=== PATIENT | male | born 1970 | race African-American/Black ===

== ENCOUNTER 2016-08-26 19:34 | Emergency (ER) | payer OTHER ==
[~2016-08-26 19:34] MED LIST: IBUPROFEN800 MG PO; PREDNISONE PO; TRIAMCINOLONE AC1 GM EXT
== END 2016-08-26 21:41 | disposition left against medical advice (07) ==
LOC: CED 19:34
DX: Z53.21 Procedure and treatment not carried out due to patient leaving prior to being seen by health care provider (principal)

== ENCOUNTER 2016-11-13 15:34 | Emergency (ER) | payer OTHER ==
[~2016-11-13] VITALS: Ht 179.1 cm; Wt 81.2 kg
--- NOTE | ~2016-11-13 | CR72 ---
[facility] A Service of [facility] RADIOLOGY TEXT RESULTS PATIENT: COSMO MONIQUE LOCATION: [facility] : 68 UNIT #: [id number] AGE: [address]: Helder Liu MD SEX: M ORDER DR: [id number] [facility] [address] [place], [place] [address] [id number] E MR#: [id number] Acc #: [id number] NAME: COSMO MONIUQE : 1970 SEX: M STUDY DATE/TIME: 11/13/2016 16:51 UNIT: [facility] ROOM: STUDY DESCRIPTION: CR Chest Single View Portable Attending Physician: Helder Liu M.D. Referring Physician: Leisa Rodas A.P.R.N. Ordering Physician: Helder Liu M.D. Primary Care Physician: Leisa Rodas A.P.R.N. MEDICAL IMAGING REPORT This report is preliminary unless electronic signature is present EXAM Portable chest 11/14/2015. HISTORY Bilateral lower extremity pain, numbness and edema with shortness of breath on exertion. Symptoms for 1 month. Benign essential hypertension. FINDINGS The heart is normal in size. The lungs are hyperinflated with emphysematous and fibrotic changes characteristic of COPD with bullous changes in the right upper lobe. No airspace consolidation is seen. There are no pleural effusions. IMPRESSION COPD with bullous changes in the right upper lobe. No active pulmonary disease. Dictated by... Candido Gao M.D. THIS IS AN ELECTRONICALLY VERIFIED REPORT Candido Gao M.D. at 11/14/2016 2:21 PM KRT/gz TD: 11/14/2016 08:04 JOB #: [id number] MEDICAL IMAGING REPORT Page 1 of 1 COPY
--- NOTE | ~2016-11-13 | EKG ---
PATIENT: COSMO MONIQUE UNIT #: [id number] Ventricular Rate: 88 BPM Atrial Rate: 88 BPM P-R Interval: 126 ms QRS Duration: 76 ms Q-T Interval: 366 ms QTC Calculation(Bezet): 442 ms P [place]: 38 degrees Calculated R [place]: 43 degrees Calculated T [place]: 23 degrees Diagnosis Line: Normal sinus rhythm Diagnosis Line: Normal ECG Diagnosis Line: When compared with ECG of 19-JUN-2010 01:47, Diagnosis Line: No significant change was found Diagnosis Line: Confirmed by BENSON GONSALEZ MD ([id number]) on 11/14/2016 Diagnosis Line: 7:17:03 AM INTERPRETING MD: SUNSHINE MONTEJO
[2016-11-13 16:42] LABS: BASOPHIL# 0.1 X10e3 (0-0.3); BASOPHIL% 1.2 % (0-2.5); EOSINOPHIL# 0.2 X10e3 (0-0.7); EOSINOPHIL% 2.5 % (0.0-7.0); HEMATOCRIT 38.2 % (38.0-50.0); LYMPHOCYTE# 1.6 X10e3 (1.0-3.5); LYMPHOCYTE% 24.6 % (17.0-45.0); MEAN CELL VOLUME 85.5 FL (83-96); MEAN CORPUSCULAR HEMOGLOBIN 29.1 PG (28-34); MEAN PLATELET VOLUME 7.4 FL (6.5-11.5); MONOCYTE# 0.5 X10e3 (0-1.0); MONOCYTE% 7.7 % (3.0-12.0); NEUTROPHIL# 4.3 X10e3 (1.5-7.1); PLATELET COUNT 234 X10e3 (140-420); RED BLOOD COUNT 4.47 X10e (3.90-5.60); RED CELL DISTRIBUTION WIDTH 13.3 % (11.0-15.5); WHITE BLOOD COUNT 6.7 X10e3 (4.0-10.5)
[2016-11-13 16:44] LABS: DIFF IND NO
[2016-11-13 17:05] LABS: ALBUMIN SERUM 3.8 g/dL (3.5-5.0); BILIRUBIN, DIRECT 0.1 mg/dL (0.0-0.2); BILIRUBIN,INDIRECT 0.6 mg/dL (0.0-0.9); BILIRUBIN,TOTAL 0.7 mg/dL (0.2-2.0); CALCIUM SERUM 9.1 mg/dL (8.4-10.2); GLOM FILT RATE Estimated 103.4 mL/min (>60); PROTEIN TOTAL SERUM 7.5 g/dL (6.0-8.3)
[2016-11-13 17:11] LABS: POC - CKMB 4.1 ng/mL (0.0-7.9); POC - TROPONIN <0.05 ng/mL (<=0.05)
== END 2016-11-13 17:46 | disposition home or self-care (01) ==
LOC: CED 15:34
PROVIDERS: Emergency Medicine
DX: I10 Essential (primary) hypertension (principal); F41.9 Anxiety disorder, unspecified; G62.9 Polyneuropathy, unspecified; F17.200 Nicotine dependence, unspecified, uncomplicated
CPT/HCPCS: 36415; 71010; 80048; 80076; 82553; 83880; 84484; 85025; 93005; 99284